=== PATIENT | female | born 1985 | race Caucasian/White ===

== ENCOUNTER 2020-07-27 18:55 | Emergency (ER) | payer BC ==
[2020-07-27] MEDS ORDERED: NA CHLORIDE 0.9% 1,000 ML ONE ×2 (19:35→19:44)
[2020-07-27 20:02] LABS: Absolute Lymphocytes (CBC) 3.2 K/uL (0.7-4.9); Basophils % 0.3 % (0-1.3); Hematocrit 39.6 % (36.0-45.0); Lymphocytes % 23.6 % (15.3-44.8); MPV 8.4 fL (7.6-11.3); RBC Red Blood Cell Count 4.83 M/uL (3.86-4.86)
[2020-07-27 20:54] LABS: Potassium 3.5 mmol/L (3.5-5.1)
[2020-07-27 21:19] LABS: Urine Blood 3+ (NEG); Urine Glucose NEGATIVE (NEG); Urine Protein 3+ (NEG); Urine Specific Gravity 1.015 (1.005-1.030)
--- NOTE | 2020-07-27 21:29 | ER ---
Nurse's Notes [facility] Name: Humaira Thompson Age: 34 yrs Sex: Female : 1985 Arrival Date: 07/27/2020 Time: 18:59 Bed 7 Private MD: Diagnosis: Threatened Presentation: 07/27 19:07 Chief complaint: Patient states: 12 weeks . Started vaginal bleeding today, no ll1 clots or cramping. No dysuria. No N/V/D, no fever. Coronavirus screen: Client denies travel out of the [place] in the last 14 days. At this time, the client does not indicate any symptoms associated with coronavirus-19. Ebola Screen: Patient denies travel to an Ebola-affected area in the 21 days before illness onset. Initial Sepsis Screen: Does the patient meet any 2 criteria? HR > 90 bpm. Risk Assessment: Do you want to hurt yourself or someone else? Patient reports no desire to harm self or others. Onset of symptoms was July 27, 2020. 19:07 Method Of Arrival: Ambulatory ll1 19:07 Acuity: MELIDA 3 ll1 19:24 Initial Sepsis Screen: Does the patient have a suspected source of infection? No. mt2 Patient's initial sepsis screen is negative. INVESTIGATIVE ANALYST: 19:25 2, 1 mt2 Historical: - Allergies: 19:09 Ibuprofen; ll1 - PSHx: 19:09 thumb surgery; Adenoids; ll1 - Immunization history:: Flu vaccine is up to date. - Social history:: Smoking status: Patient denies any tobacco usage or history of. Patient/guardian denies using alcohol, street drugs. Screenin:20 Abuse screen: Denies threats or abuse. Nutritional screening: No deficits noted. mt2 Tuberculosis screening: No symptoms or risk factors identified. Fall Risk None identified. Assessment: 19:21 Obstetrical Assessment: General assessment: awake and alert. Obstetrical Assessment: mt2 Patient reports vaginal bleeding. General: Appears in no apparent distress. Behavior is cooperative. Pain: Denies pain. : Reports vaginal bleeding that is. 20:28 Reassessment: Patient and/or family updated on plan of care and expected duration. Pain mt2 level reassessed. Patient is alert, oriented x 3, equal unlabored respirations, skin warm/dry/pink. General: Appears comfortable, Behavior is cooperative. Pain: Complains of pain in pelvis Pain currently is 5 out of 10 on a pain scale. 21:09 Reassessment: Patient and/or family updated on plan of care and expected duration. Pain mt2 level reassessed. Patient is alert, oriented x 3, equal unlabored respirations, skin warm/dry/pink. Patient denies pain at this time. Reassessment: unable to auscultate fht. General: Appears comfortable, Behavior is cooperative. Vital Signs: 19:07 BP 145 / 91; Pulse 100; Resp 18; Temp 98.2; Pulse Ox 100% ; Pain 0/10; ll1 20:21 BP 144 / 87; Pulse 111; Pulse Ox 100% on R/A; ss 21:09 BP 130 / 77; Pulse 106; Resp 16; Pulse Ox 100% ; Pain 0/10; mt2 Vitals: 19:25 Heart Tones not applicable. mt2 ED Course: 18:59 Patient arrived in ED. mr 19:08 Triage completed. ll1 19:09 Arm band placed on Patient placed in an exam room, on a stretcher. ll1 19:11 Lara Trevino, CASSY is Primary Nurse. mt2 19:16 Sebastian Hernandez NP is PHCP. pm1 19:24 Patient has correct armband on for positive identification. Call light in reach. Side mt2 rails up X 1. 19:35 Initial lab(s) drawn, by ED staff, sent to lab. Inserted saline lock: 20 gauge in right mt2 forearm, using aseptic technique. ,using aseptic technique. STARTED BY SURESH Mcdonald RN Blood collected. 21:25 Jose Enrique Cox MD is Attending Physician. pm1 21:25 Gino Waters MD is Referral Physician. pm1 21:30 No provider procedures requiring assistance completed. IV discontinued, intact, mt2 bleeding controlled, No redness/swelling at site. Pressure dressing applied. Administered Medications: 19:34 Drug: NS 0.9% 1000 ml Route: IV; Rate: 1000 ml; Site: right forearm; mt2 21:32 Follow up: Response: No adverse reaction; IV Status: Completed infusion mt2 Point of Care Testing: Urine : 21:30 hCG Reading: Positive; Control Reading: Negative; mt2 Outcome: 21:25 Discharge ordered by . pm1 21:30 Discharged to home ambulatory. mt2 21:30 Condition: good 21:30 Discharge instructions given to patient, Instructed on discharge instructions, follow up and referral plans. Demonstrated understanding of instructions, follow-up care. 21:54 Patient left the ED. mt2 Signatures: Raf Danielle CoxEbony, RN RN ss Sebastian Hernandez, SOURAV BAG MACHINE SET UP OPERATOR pm1 Tika Farley RN RN 1 Lara Trevino RN RN mt2
--- NOTE | 2020-07-27 21:29 | EDPHYS ---
Physician Documentation [facility] Name: Humaira Thompson Age: 34 yrs Sex: Female : 1985 Arrival Date: 07/27/2020 Time: 18:59 Bed 7 Private MD: ED Physician Jose Enrique Cox HPI: 07/27 19:34 This 34 yrs old Female presents to ER via Ambulatory with complaints of pm1 Vaginal Bleeding, + Preg <12wks. 19:34 The patient presents to the emergency department with vaginal bleeding, that is pm1 moderate, with no clots, reports using 1 pads or tampons per day, onset 45 minutes prior to arrival. The estimated gestational age is 13 weeks. course: care: private OB physician, Dr. Cervantes, Ultrasound: the patient had an ultrasound, on July 01, 2020, which was normal. Associated signs and symptoms: Pertinent negatives: abdominal pain, fever, frequency. The patient has experienced a previous episode, Miscarriage at the beginning of the year. INTERNATIONAL ACCOUNTANT: 19:25 2, 1 mt2 Historical: - Allergies: 19:09 Ibuprofen; ll1 - PSHx: 19:09 thumb surgery; Adenoids; ll1 - Immunization history:: Flu vaccine is up to date. - Social history:: Smoking status: Patient denies any tobacco usage or history of. Patient/guardian denies using alcohol, street drugs. ROS: 19:34 Constitutional: Negative for fever, chills, and weight loss, Cardiovascular: Negative pm1 for chest pain, palpitations, and edema, Respiratory: Negative for shortness of breath, cough, wheezing, and pleuritic chest pain, Abdomen/GI: Negative for abdominal pain, nausea, vomiting, diarrhea, and constipation, Back: Negative for injury and pain. 19:34 MS/Extremity: Negative for injury and deformity. 19:34 Skin: Negative for injury, rash, and discoloration, Neuro: Negative for headache, weakness, numbness, tingling, and seizure. 19:34 : Positive for vaginal bleeding, Negative for urinary symptoms. Exam: 19:34 Constitutional: This is a well developed, well nourished patient who is awake, alert, pm1 and in no acute distress. Head/Face: Normocephalic, atraumatic. 19:34 Back: No spinal tenderness. No costovertebral tenderness. Full range of motion. Skin: Warm, dry with normal turgor. Normal color with no rashes, no lesions, and no evidence of cellulitis. MS/ Extremity: Pulses equal, no cyanosis. Neurovascular intact. Full, normal range of motion. 19:34 Cardiovascular: Exam negative for acute changes, Rate: normal, Rhythm: regular, Pulses: no pulse deficits are appreciated. 19:34 Respiratory: Exam negative for acute changes, respiratory distress, shortness of breath. 19:34 Abdomen/GI: Exam negative for acute changes, Inspection: abdomen appears normal, Bowel sounds: normal, Palpation: abdomen is soft and non-tender, in all quadrants. 19:34 Neuro: Exam negative for acute changes, Orientation: is normal, Motor: is normal, no acute changes, moves all fours. Vital Signs: 19:07 BP 145 / 91; Pulse 100; Resp 18; Temp 98.2; Pulse Ox 100% ; Pain 0/10; ll1 20:21 BP 144 / 87; Pulse 111; Pulse Ox 100% on R/A; ss 21:09 BP 130 / 77; Pulse 106; Resp 16; Pulse Ox 100% ; Pain 0/10; mt2 MDM: 19:17 Patient medically screened. pm1 20:33 Data reviewed: radiologic studies, ultrasound, Ultrasound reviewed from 07/01/2020. 8 pm1 week 6 days IUP. 21:24 Data reviewed: vital signs. Data interpreted: Pulse oximetry: on room air is 100 %. pm1 Interpretation: normal. Counseling: I had a detailed discussion with the patient and/or guardian regarding: the historical points, exam findings, and any diagnostic results supporting the discharge/admit diagnosis, lab results, the need for outpatient follow up, to return to the emergency department if symptoms worsen or persist or if there are any questions or concerns that arise at home. 21:24 ED course: Patient reports bleeding has not continued in the ER. Has not had to change pm1 pad. Therefore will discharge her home and instructed her to follow up with [facility] for repeat beta HCG and U/S as needed. 07/27 19:22 Order name: Quantitative Hcg; Complete Time: 20:56 pm1 07/27 19:22 Order name: Abo/rh Typing; Complete Time: 20:49 pm1 07/27 19:22 Order name: Basic Metabolic Panel; Complete Time: 20:56 pm1 07/27 19:22 Order name: CBC with Diff; Complete Time: 20:30 pm1 07/27 20:53 Order name: Urine Dipstick--Ancillary (enter results); Complete Time: 21:24 mw2 07/27 20:53 Order name: Urine --Ancillary (enter results); Complete Time: 21:24 mw2 07/27 19:22 Order name: IV Saline Lock; Complete Time: 19:34 pm1 07/27 19:22 Order name: Labs collected and sent; Complete Time: 19:34 pm1 07/27 19:22 Order name: NPO; Complete Time: 19:34 pm1 07/27 19:22 Order name: Urine Dipstick-Ancillary (obtain specimen); Complete Time: 21:54 pm1 07/27 20:33 Order name: FHT's; Complete Time: 20:55 pm1 Administered Medications: 19:34 Drug: NS 0.9% 1000 ml Route: IV; Rate: 1000 ml; Site: right forearm; mt2 21:32 Follow up: Response: No adverse reaction; IV Status: Completed infusion mt2 Point of Care Testing: Urine : 21:30 hCG Reading: Positive; Control Reading: Negative; mt2 Disposition: 07/28 07:03 Co-signature as Attending Physician, Jose Enrique Cox MD I agree with the assessment and tw4 plan of care. Disposition: 07/27/20 21:25 Discharged to Home. Impression: Threatened . - Condition is Stable. - Discharge Instructions: Threatened Miscarriage, Pelvic Rest. - Medication Reconciliation Form, Thank You Letter, Antibiotic Education, Prescription Opioid Use form. - Follow up: Emergency Department; When: As needed; Reason: Worsening of condition. Follow up: Gino Waters MD; When: 2 - 3 days; Reason: Recheck today's complaints, Continuance of care, Re-evaluation by your physician. - Problem is new. - Symptoms have improved. Signatures: Dispatcher [employer] EDMS Sebastian Hernandez, GRIZZLYMAN GRIZZLYMAN pm1 Jose Enrique Cox MD MD tw4 Tika Farley RN RN 1 Lara Trevino RN RN mt2 Corrections: (The following items were deleted from the chart) 07/27 21:26 21:25 07/27/2020 21:25 Discharged to Home. Impression: Threatened . Condition pm1 is Stable. Forms are Medication Reconciliation Form, Thank You Letter, Antibiotic Education, Prescription Opioid Use. Follow up: Emergency Department; When: As needed; Reason: Worsening of condition. Follow up: Private Physician; When: 2 - 3 days; Reason: Recheck today's complaints, Continuance of care, Re-evaluation by your physician. Problem is new. Symptoms have improved. pm1 21:54 21:26 07/27/2020 21:25 Discharged to Home. Impression: Threatened . Condition mt2 is Stable. Discharge Instructions: Threatened Miscarriage, Pelvic Rest. Forms are Medication Reconciliation Form, Thank You Letter, Antibiotic Education, Prescription Opioid Use. Follow up: Emergency Department; When: As needed; Reason: Worsening of condition. Follow up: Gino Waters; When: 2 - 3 days; Reason: Recheck today's complaints, Continuance of care, Re-evaluation by your physician. Problem is new. Symptoms have improved. pm1
[2020-07-28 08:51] VITALS: TEMP 98.2; O2SAT 100
[2020-07-28 08:53] VITALS: BP 130/77
== END 2020-07-27 21:54 | disposition home or self-care (01) ==
LOC: ER 18:55
DX: O20.0 Threatened abortion (principal); Z3A.12 12 weeks gestation of pregnancy; Z88.6 Allergy status to analgesic agent
CPT/HCPCS: 85025; 80048; 36415; 86900; 81025; 86901; 84702; 81003; J7030 ×2; 96360; 96361; 99284